=== PATIENT | female | born 1985 | race Caucasian/White ===

== ENCOUNTER 2016-10-09 08:50 | Emergency (ER) | payer SELFPAY ==
[~2016-10-09] VITALS: Ht 157.5 cm; Wt 103.0 kg
[~2016-10-09 08:50] MED LIST: ACET1TAB19 PO; ALBU8CC IH; ALPR.25T PO; CITA20TA12; CITA40TA5 PO; CYCL10TA45 PO; DIPH25CA79 PO; GFCD10B GT; GUAI473L PO; HEARTBURN MED PO; HYDR28CR45 TP; IBP200T PO; IPRA3AMP11 INH; NORT25CA; ONDA4TAB41 PO; PARO10TA24 PO; PHEN-639 PO; PRED20TA PO; PREN-46 PO; SULF-228 PO; SUMA50TA2; TRM50T PO
[2016-10-09] MEDS ORDERED: IBUPROFEN 200 MG (MOTRIN) TAB PO ONE (09:15)
[2016-10-09 09:32] LABS: BASOPHILS % (AUTO) 0 % (0-2); EOSINOPHILS # (AUTO) 0.3 10^3uL; EOSINOPHILS % (AUTO) 3 % (0-4); LYMPHOCYTES # (AUTO) 1.9 X10^3; MEAN CORPUSCULAR HEMOGLOBIN 29.6 PG (26.0-34.0); MEAN CORPUSCULAR HGB CONC 33.9 g/dL (31.0-37.0); MEAN CORPUSCULAR VOLUME 87 FL (80-100); MEAN PLATELET VOLUME 10.7 FL (6.0-9.5); MONOCYTES % (AUTO) 10 % (3-11); NEUTROPHILS # (AUTO) 6.7 X10^3; NEUTROPHILS % (AUTO) 68 % (51-67); PLATELET COUNT 250 10^3uL (150-450)
[2016-10-09 09:41] LABS: INFLUENZA VIRUS TYPE A ANTIBOD Negative (NEGATIVE); INFLUENZA VIRUS TYPE B ANTIBOD Negative (NEGATIVE)
--- NOTE | 2016-10-09 10:03 | Diagnostic Imaging Report ---
INDICATION: Shortness of air. COMPARISON: 05/03/16. FINDINGS: There is ill-defined airspace nodule adjacent to the cardiac apex seen on the frontal radiograph, but is not seen with certainty on the lateral projection. This is likely within the lingula. No additional focal airspace disease. No pleural effusion or pneumothorax. Normal cardio mediastinal silhouette. Normal pulmonary vasculature. IMPRESSION: Lingular airspace opacities likely representing infectious process. Dictated by: Dictated on workstation # [id number]
[2016-10-09] MEDS ORDERED: HYDR-3702 PO (10:21)
[2016-10-09] MEDS ORDERED: AZIT250T81 PO (10:21)
[2016-10-09 10:35] VITALS: BP 121/80
== END 2016-10-09 10:35 | disposition home or self-care (01) ==
LOC: EDUNIT# 08:50 → ED 08:54
DX: J18.8 Other pneumonia, unspecified organism (principal)
CPT/HCPCS: 36415; 71020; 85025; 87070; 87502; 87651; 99282; 99283